=== PATIENT | male | born 1965 | race Caucasian/White ===

== ENCOUNTER 2021-11-22 01:10 | Day surgery (SDC) | payer OTHER, SELFPAY ==
[2021-11-19 14:00] VITALS: BMI 32.3
[2021-11-22] VITALS (9 sets, daily range): BP systolic 125–158; BP diastolic 79–98; PULSE 53–68; RESP 12–18; TEMP 36.7; O2SAT 95–99
--- NOTE | 2021-11-22 10:00 | ECG_ITS ---
Measurements Intervals [place] Rate: 50 P: [place]: 0 QRS: 44 QRSD: 114 T: 35 QT: 456 QTc: 419 Interpretive Statements ATRIAL FIBRILLATION WITH SLOW VENTRICULAR RESPONSE BORDERLINE ST ABNORMALITY- INF/LAT LEADS BASELINE ARTIFACT- V1-V6 ABNORMAL ECG Electronically Signed On 11-22-2021 11:06:14 [employer] WORK[employer] by Anoop Bosch D.O.
[2021-11-22 11:02] LABS: Anion Gap 7 mmol/L (8-16); Blood Urea Nitrogen 19 mg/dL (9-20); Calcium 9.8 mg/dL (8.4-10.2); Carbon Dioxide 26 mmol/L (22-30); Chloride 106 mmol/L (98-107); Estimated CRCL calculation 133 ml/min; Estimated Glomerular Filt Rate > 60; Glucose 114 mg/dL (65-110); Magnesium 1.8 mg/dL (1.6-2.3); Potassium 4.2 mmol/L (3.4-5.0); Sodium 139 mmol/L (137-145)
--- NOTE | 2021-11-22 11:20 | WPDHPUPDATE1 ---
History and Physical Update Update Date/Time: 11/22/21 11:20 History and Physical has been reviewed, including an updated exam of the patient. There are NO changes in the patient's condition. Risks, benefits, and alternatives have been discussed and questions answered. Patient agrees to proceed with procedure.
--- NOTE | 2021-11-22 11:20 | WPDMODSED ---
Moderate Sedation Note-Pt Data Patient Data Diagnosis: Atrial fibrillation Present Complaint: None Procedure to be performed/Plan: Elective electrical cardioversion Allergies Allergy/AdvReac Type Severity Reaction Status Date / Time No Known Allergies Allergy Verified 11/22/21 10:18 Home Medications Medication Instructions Recorded Confirmed Type rivaroxaban 20 mg tablet 20 mg PO DAILY #30 tablet 08/09/21 11/22/21 Rx hydrocodone-acetaminophen 1 tablet PO TID PRN 11/19/21 11/19/21 History metoprolol tartrate 12.5 mg PO BID 11/19/21 11/19/21 History sennosides-docusate sodium [Senna 1 tab-cap PO DAILY 11/19/21 11/19/21 History with Docusate Sodium] Current Medications: Active Medications Sodium Chloride (Normal Saline Iv) 500 mls @ 30 mls/hr IV CONT .[id number] JUVENTINO Sedation/Anesthesia: No previous sedation/anesthesia problems (including family history). PMFSH Past Medical History Medical History Chronic atrial fibrillation Unspecified atrial fibrillation Surgical History Surgical History Multiple trauma Social History Social History Smoking status: Never smoker Alcohol intake: never Mod Sed Physical Exam Physical Exam Pre Procedural Exam: Normal: Appearance, Eyes, Ears, Nose, Neck (Supple, normal range of motion), Throat (Posterior hypopharynx clear, nonerythematous), Airway (Normal anatomy no obstruction), Lungs (Clear to auscultation bilaterally), Heart Size, Neuro Exam, Abdomen, Liver and Skin and Variation: Heart Rate (Bradycardic), Heart Rhythm (Irregularly irregular) and Extremities (Surgical incisions/deformity lower extremities) Hours since solid foods: 12 Hours since liquid intake: 12 Mallampati Classification: class III Internal Medicine - PN: Obj Da Vital Signs Vital Signs: Vital Signs - 24 hr 11/22/21 10:24 Temperature 36.7 C Pulse Rate 55 L Respiratory Rate 14 Blood Pressure 158/80 H Pulse Oximetry 98 Meds/Results Medications: Active Medications Generic Name Dose Route Start Last Admin Trade Name Freq PRN Reason Stop Dose Admin Sodium Chloride 500 mls @ 30 mls/hr 11/22/21 10:00 Normal Saline Iv IV CONT .[id number] JUVENTINO Labs CBC & Chem 7: 11/22/21 10:14 Labs: Laboratory Results - last 24 hr 11/22/21 10:14 Sodium 139 Potassium 4.2 Chloride 106 Carbon Dioxide 26 Anion Gap 7 L BUN 19 Creatinine 0.70 Estim Creat Clear Calc 133 Estimated GFR > 60 Glucose 114 H Calcium 9.8 Magnesium 1.8 ASA Classification/Sedation ASA Classification/Sedation ASA Class: IV Emergent: No Risks: Risks, benefits and alternatives explained and patient/family accepted plan for sedation. Patient re-evaluated immediately prior to sedation.
--- NOTE | 2021-11-22 11:45 | ECG_ITS ---
Measurements Intervals [place] Rate: 63 P: 50 VA: 264 QRS: 49 QRSD: 108 T: 42 QT: 479 QTc: 494 Interpretive Statements SINUS RHYTHM WITH SINUS ARRHYTHMIA WITH FIRST DEGREE AV BLOCK PROLONGED QT INTERVAL BASELINE ARTIFACT- I, II, III, AVL, V1-V3 ABNORMAL ECG Electronically Signed On 11-22-2021 12:45:40 [employer] by Anoop Bosch D.O.
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
== END 2021-11-22 13:23 | disposition home or self-care (01) ==
PROVIDERS: PCP Family Medicine; Visit Provider Internal Medicine Cardiovascular Disease
PROC: 5A2204Z Restoration of Cardiac Rhythm, Single (ICD-10-PCS; principal; 2021-11-22 11:30)
DX: I48.91 Unspecified atrial fibrillation (principal); I44.30 Unspecified atrioventricular block; G47.33 Obstructive sleep apnea (adult) (pediatric); R00.1 Bradycardia, unspecified; R53.83 Other fatigue; Z79.01 Long term (current) use of anticoagulants; K42.9 Umbilical hernia without obstruction or gangrene
CPT/HCPCS: 36415; 80048; 83735; 92960; J2250; J3010; J7030

== ENCOUNTER → 2022-04-07 15:27 | Outpatient (CLI) | payer OTHER, SELFPAY ==
--- NOTE | ~2022-04-07 | CT_ITS ---
EXAMINATION: CT diagnostic chest wo con DATE: 04/07/2022 15:46 INDICATION: Solitary pulmonary nodule TECHNIQUE: Computed tomography (CT) of the chest was performed without intravenous contrast. Automate d exposure control and iterative reconstruction technique were employed. Exam dose: 214.97 mGy-cm to rebecca exam DLP. COMPARISON: None FINDINGS: Mild left and slight right gynecomastia. Cardiomegaly. Coronary artery calcification. No pericardial effusion. No thoracic aortic aneurysm. Calcified right and subcarinal lymph nodes and right and left lower lobe calcified pulmonary granulom as, consistent with old pulmonary granulomatous disease. No hilar or mediastinal mass lesion or lymphadenopathy. Numerous calcified splenic granulomas and occasional hepatic calcified granulomas. Normal morphology of the adrenal glands. Diffuse idiopathic skeletal hyperostosis of the thoracic spine. IMPRESSION: Old pulmonary granulomatous disease Cardiomegaly, coronary and aortic atherosclerosis Gynecomastia, mild on the left, slight on the right Diffuse idiopathic skeletal hyperostosis of the thoracic spine Reviewed, dictated and finalized at [facility] Reviewed, dictated and finalized at [facility].
== END ==
PROVIDERS: PCP Family Medicine; Visit Provider Family Medicine
DX: R91.1 Solitary pulmonary nodule (principal); R91.8 Other nonspecific abnormal finding of lung field; I25.10 Atherosclerotic heart disease of native coronary artery without angina pectoris; I70.0 Atherosclerosis of aorta; N62 Hypertrophy of breast; M48.14 Ankylosing hyperostosis [Forestier], thoracic region
CPT/HCPCS: 71250

== ENCOUNTER 2022-09-15 14:43 | Outpatient (CLI) | payer OTHER, SELFPAY ==
[2022-09-15 19:19] LABS: Basophils Absolute Auto 0.1 K/mm3 (0.0-0.1); Basophils Percent Auto 0.6 % (0.2-1.2); Eosinophils Absolute Auto 0.2 K/mm3 (0-0.3); Eosinophils Percent Auto 2.9 % (0-4.4); Hematocrit 42.8 % (42.0-52.0); Hemoglobin 14.4 g/dL (14.0-18.0); Immature Granulocyte Absolute 0.02 K/mm3 (0.00-0.031); Immature Granulocyte Percent A 0.3 % (0-0.5); Lymphocytes Absolute Auto 2.21 K/mm3 (0.9-3.2); Lymphocytes Percent Auto 27.7 % (18.3-44.2); Mean Corpuscular HGB Conc 33.6 g/dl (32-36); Mean Corpuscular Hemoglobin 30.3 pg (26-34); Mean Corpuscular Volume 90.1 fl (80-100); Mean Platelet Volume 10.8 fl (7.4-10.4); Monocytes Absolute Auto 0.7 K/mm3 (0.1-0.6); Monocytes Percent Auto 8.8 % (2.6-8.5); Neutrophils Absolute Auto 4.8 K/mm3 (1.3-6.7); Neutrophils Percent Auto 59.7 % (45.5-73.1); Platelet Count Result 253 k/mm3 (150-375); Red Blood Count 4.75 M/mm3 (4.6-6.20); Red Cell Distribution Width 12.7 % (11.5-14.5)
[2022-09-15 19:34] LABS: Hemoglobin A1C 5.9 % (<5.7)
[2022-09-15 19:36] LABS: Alanine Aminotransferase 31 U/L (6-50); Albumin Level 4.7 g/dL (3.5-5.1); Alkaline Phosphatase 118 U/L (38-126); Anion Gap 12 mmol/L (8-16); Aspartate Amino Transferase 40 U/L (17-59); Blood Urea Nitrogen 26 mg/dL (9-20); Calcium 9.1 mg/dL (8.4-10.2); Carbon Dioxide 26 mmol/L (22-30); Chloride 101 mmol/L (98-107); Cholesterol 177 mg/dL (0-200); Estimated Glomerular Filt Rate > 60; Glucose 81 mg/dL (65-110); HDL Direct 57 mg/dL; Potassium 4.3 mmol/L (3.4-5.0); Sodium 139 mmol/L (137-145); Triglycerides 59 mg/dL (<150)
[2022-09-15 19:50] LABS: LDL Cholesterol Direct 101 mg/dL
[2022-09-15 20:11] LABS: Prostate Specific Antigen 0.4 ng/mL (< OR = 4.0)
[2022-09-15 20:42] LABS: Hepatitis C Virus Antibody Negative (Negative)
== END 2022-09-15 14:44 | disposition home or self-care (01) ==
LOC: ANHGOSHLAB 14:45
PROVIDERS: PCP Family Medicine; Visit Provider Family Medicine
DX: G47.33 Obstructive sleep apnea (adult) (pediatric) (principal); Z99.89 Dependence on other enabling machines and devices; R73.9 Hyperglycemia, unspecified; Z12.5 Encounter for screening for malignant neoplasm of prostate; Z11.59 Encounter for screening for other viral diseases; I25.10 Atherosclerotic heart disease of native coronary artery without angina pectoris; I25.84 Coronary atherosclerosis due to calcified coronary lesion
CPT/HCPCS: 36415; 80053; 80061; 83036; 84153; 85025; 86803; G0103

== ENCOUNTER 2022-10-19 00:42 | Day surgery (SDC) | payer OTHER, SELFPAY ==
[2022-10-13 09:54] VITALS: BMI 30.8
[2022-10-19 07:46] VITALS: BP 155/80; PULSE 46; RESP 18; TEMP 35.8; O2SAT 100
[2022-10-19] MEDS: LACTATED RINGERS 1,000 ML 150 ML IV CONT (07:53)
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
[2022-10-19 09:00] VITALS: BP 131/83; PULSE 50; RESP 15; O2SAT 95
[2022-10-19 09:13] VITALS: BP 130/85; PULSE 62; RESP 20; O2SAT 97
[2022-10-19 09:20] VITALS: BP 126/81; PULSE 48; RESP 20; O2SAT 98
== END 2022-10-19 09:35 | disposition home or self-care (01) ==
PROVIDERS: PCP Family Medicine; Visit Provider Internal Medicine Gastroenterology
PROC: 0DJD8ZZ Inspection of Lower Intestinal Tract, Via Natural or Artificial Opening Endoscopic (ICD-10-PCS; CPT 45378; principal; 2022-10-19 09:00)
DX: Z12.11 Encounter for screening for malignant neoplasm of colon (principal); D12.5 Benign neoplasm of sigmoid colon; K64.8 Other hemorrhoids; I48.19 Other persistent atrial fibrillation; G47.33 Obstructive sleep apnea (adult) (pediatric); Z87.891 Personal history of nicotine dependence; E66.9 Obesity, unspecified; Z68.31 Body mass index [BMI] 31.0-31.9, adult
CPT/HCPCS: 45385; 88305; J2704; J7120